=== PATIENT | male | born 1970 | race Caucasian/White ===

== ENCOUNTER 2023-02-24 19:46 | Emergency (ER) | payer SELFPAY ==
[2023-02-24 19:54] VITALS: BP 116/74; PULSE 65; RESP 18; TEMP 97.9; BMI 27.1
[2023-02-24] MEDS ORDERED: ACETAMINOPHEN 1000 MG/100 ML BAG IVPB ONE (20:31)
[2023-02-24] MEDS ORDERED: ACETAMINOPHEN INJECTION 100 ML IVPB ONE (20:31)
[2023-02-24 20:59] LABS: BASO % 0.5 % (0-2.0); EOS % 0.8 % (0-4.5); HEMATOCRIT 41.2 % (35.4-49); HEMOGLOBIN 14.1 GM/dL (11.7-16.9); LYMPH % 40.1 % (8-40); MCH 30.7 pg (25.7-33.7); MCHC 34.2 g/dl (32.0-35.9); MEAN CELL VOLUME 89.8 fl (80-96); MONO % 9.1 % (3.8-10.2); NEUT % 49.5 % (42.8-82.8); PLATELET COUNT 215 10^3/uL (134-434); RBC 4.59 M/mm3 (4.00-5.60); RDW 13.5 % (11.9-15.9); WHITE BLOOD COUNT 6.1 K/mm3 (4.0-10.0)
[2023-02-24 21:05] LABS: INR 0.98 (0.83-1.09); PROTHROMBIN TIME (PATIENT) 11.4 SEC (9.7-13.0)
[2023-02-24 21:07] LABS: ACTIVATED PTT 29.7 SECONDS (25.2-36.5)
[2023-02-24 21:50] LABS: POTASSIUM 3.8 mmol/L (3.5-5.1)
[2023-02-24 21:52] LABS: CALCIUM 8.7 mg/dL (8.5-10.1)
[2023-02-24 21:53] LABS: ALBUMIN 3.5 g/dl (3.4-5.0); BLOOD UREA NITROGEN 20.3 mg/dL (7-18); MAGNESIUM 2.1 mg/dL (1.8-2.4)
[2023-02-24 21:57] LABS: TOT PROT 7.1 g/dl (6.4-8.2)
[2023-02-24 21:58] LABS: PH,URINE 5.5 (5.0-8.0); URINE APPEARANCE CLEAR; URINE BILIRUBIN NEGATIVE (NEGATIVE); URINE COLOR YELLOW; URINE GLUCOSE (UA) NEGATIVE (NEGATIVE); URINE KETONE NEGATIVE (NEGATIVE); URINE LEUK ESTERASE NEGATIVE (NEGATIVE); URINE NITRITE NEGATIVE (NEGATIVE); URINE PROTEIN NEGATIVE (NEGATIVE)
[2023-02-24 21:58] LABS: BILIRUBIN,TOTAL 0.5 mg/dL (0.2-1)
[2023-02-25] MEDS ORDERED: KETOROLAC TROMETHAMINE 30 MG/1 ML VIAL IVPUSH ONE
[2023-02-25] MEDS ORDERED: KETOROLAC TROMETHAMINE 30 MG/1 ML VIAL ONE (00:03)
== END 2023-02-25 00:23 | disposition home or self-care (01) ==
LOC: JER 19:46
DX: R10.31 Right lower quadrant pain (principal)
CPT/HCPCS: 36415; 74177-TC; 80053; 81003; 83735; 85025; 85610; 85730; 86850; 86900; 86901; 87086; 99285-25; Q9967

== ENCOUNTER 2024-02-24 12:34 | Emergency (ER) | payer OTHER ==
[2024-02-24 12:53] VITALS: BMI 26.6
[2024-02-24] MEDS ORDERED: ASPIRIN 81 MG CHEWABLE TABLETS ONE (13:14)
[2024-02-24] MEDS: ASPIRIN 81 MG CHEWABLE TABLETS PO ONE (13:29)
[2024-02-24 14:01] LABS: BASO % 0.4 % (0-2.0); EOS % 0.5 % (0-4.5); HEMATOCRIT 42.5 % (35.4-49); HEMOGLOBIN 14.1 GM/dL (11.7-16.9); LYMPH % 34.4 % (8-40); MCH 30.7 pg (25.7-33.7); MCHC 33.2 g/dl (32.0-35.9); MEAN CELL VOLUME 92.6 fl (80-96); MONO % 6.2 % (3.8-10.2); NEUT % 58.5 % (42.8-82.8); PLATELET COUNT 236 10^3/uL (134-434); RBC 4.59 M/mm3 (4.00-5.60); RDW 13.6 % (11.9-15.9); WHITE BLOOD COUNT 5.4 K/mm3 (4.0-10.0)
[2024-02-24 14:14] LABS: INR 0.99 (0.83-1.09); PROTHROMBIN TIME (PATIENT) 11.2 SEC (9.7-13.0)
[2024-02-24 14:24] LABS: POTASSIUM 4.4 mmol/L (3.5-5.1)
[2024-02-24 14:25] LABS: CALCIUM 9.1 mg/dL (8.5-10.1)
[2024-02-24 14:26] LABS: ALBUMIN 3.7 g/dl (3.4-5.0); BLOOD UREA NITROGEN 17.8 mg/dL (7-18); MAGNESIUM 2.1 mg/dL (1.8-2.4)
[2024-02-24 14:29] LABS: CREATININE 0.8 mg/dL (0.55-1.3)
[2024-02-24 14:30] LABS: BILIRUBIN,TOTAL 0.4 mg/dL (0.2-1); TOT PROT 7.5 g/dl (6.4-8.2)
[2024-02-24 16:30] VITALS: BP 127/82; PULSE 60; RESP 16; TEMP 97.8
== END 2024-02-24 16:30 | disposition home or self-care (01) ==
LOC: JER 12:34
DX: R07.81 Pleurodynia (principal); R42 Dizziness and giddiness; R51.9 Headache, unspecified; R06.02 Shortness of breath; Z20.822 Contact with and (suspected) exposure to COVID-19
CPT/HCPCS: 0241U-QW; 36415; 71046-TC-FY; 80053; 83735; 84484; 85025; 85379; 85610; 85730; 93005; 93010; 99285-25